=== PATIENT | female | born 1970 | race Caucasian/White ===

== ENCOUNTER 2018-09-26 11:44 | Emergency (ER) | payer MEDICAID, OTHER ==
[~2018-09-26] VITALS: Ht 160 cm; Wt 81.6 kg
[2018-09-26 11:51] VITALS: BP_SYST 148
[2018-09-26] MEDS ORDERED: IBUPROFEN 600 MG TABLET PO ONE (12:15)
[2018-09-26 12:51] VITALS: BP_SYST 138
== END 2018-09-26 12:50 | disposition home or self-care (01) ==
LOC: SED 11:44
DX: S43.401A Unspecified sprain of right shoulder joint, initial encounter (principal); R03.0 Elevated blood-pressure reading, without diagnosis of hypertension; Z88.1 Allergy status to other antibiotic agents; V43.52XA Car driver injured in collision with other type car in traffic accident, initial encounter; Y93.89 Activity, other specified; Y92.410 Unspecified street and highway as the place of occurrence of the external cause; Y99.8 Other external cause status
CPT/HCPCS: 73030; 99283

== ENCOUNTER 2018-11-12 03:44 | Emergency (ER) | payer OTHER, MEDICAID ==
[~2018-11-12] VITALS: Ht 160 cm; Wt 81.6 kg
[2018-11-12 04:00] VITALS: BP_SYST 152
--- NOTE | 2018-11-12 04:00 | NUR ---
Patient to ER bed 7 to gown for evaluation. Side rails up.
--- NOTE | 2018-11-12 04:05 | NUR ---
Pt complains of vaginal bleeding. Pt states her last period ended on October 27 and noticed that she started to bleed again on November 09. Pt denies any pain, N/V, fever, or discharge. No other injuries/complaints per patient or noted.
--- NOTE | 2018-11-12 04:09 | NUR ---
ER Dr. Laurent at bedside examining patient.
[2018-11-12 04:19] LABS: BILIRUBIN,URINE NEGATIVE (NEGATIVE); BLOOD, URINE 3+ (NEGATIVE); CLARITY/URINE CLEAR (CLEAR); COLOR,URINE YELLOW (YELLOW); GLUCOSE,URINE NEGATIVE (NEGATIVE); KETONES,URINE NEGATIVE (NEGATIVE); LEUKOCYTE ESTERASE ,URINE NEGATIVE (NEGATIVE); NITRITE, URINE NEGATIVE (NEGATIVE); PROTEIN URINE NEGATIVE (NEGATIVE); UROBILINOGEN,URINE 0.2 (0.2-1.0)
--- NOTE | 2018-11-12 04:21 | NUR ---
Senior Firewall Engineer at bedside obtaining blood work. Pt tolerated well.
[2018-11-12 04:24] LABS: BACTERIA,URINE FEW /HPF (None Seen); WBC,URINE 0-3 /HPF (0-3)
[2018-11-12 04:47] LABS: BASOPHILS % (AUTO) 0.3 % (0.0-2.0); CALCIUM 8.9 mg/dL (8.4-11.0); CREATININE 0.68 mg/dL (0.55-1.30); EOSINOPHILS % (AUTO) 0.4 % (0.0-4.0); HEMATOCRIT 44.8 % (36-48); HEMOGLOBIN 14.9 g/dL (12.0-16.0); LYMPHOCYTES # (AUTO) 1.8 K/uL (1.0-5.5); LYMPHOCYTES % (AUTO) 19.2 % (20.5-51.5); MEAN CORPUSCULAR HEMOGLOBIN 32 pg (27-31); MEAN CORPUSCULAR HGB CONC 33 % (32-36); MEAN CORPUSCULAR VOLUME 95 fL (79.0-98.0); MONOCYTES # (AUTO) 0.7 K/uL (0.0-1.0); NEUTROPHILS # (AUTO) 6.7 K/uL (1.8-7.7); NEUTROPHILS % (AUTO) 72.1 % (40.0-70.0); PLATELET COUNT (AUTO) 323 K/uL (130-430); RED CELL DISTRIBUTION WIDTH 13.4 % (9.0-15.0); WHITE BLOOD COUNT (AUTO) 9.3 K/uL (4.8-10.8)
[2018-11-12 04:49] LABS: INR 0.9 (0.8-1.2); PROTHROMBIN TIME 9.7 SECS (9.5-12.5)
[2018-11-12 04:52] LABS: ALBUMIN 3.8 g/dL (3.4-4.8); TOTAL BILIRUBIN 0.6 mg/dL (0.0-1.0)
--- NOTE | 2018-11-12 04:58 | NUR ---
ER Dr. Lauernt at bedside explaining results to patient.
[2018-11-12 05:13] VITALS: BP_SYST 144
--- NOTE | 2018-11-12 05:13 | NUR ---
Patient given written and verbal discharge instructions and verbalizes understanding. ER MD discussed with patient the results and treatment provided. Patient in stable condition. ID arm band removed. Rx of [place] given. Patient educated on pain management and to follow up with PMD. Pain Scale 0. Opportunity for questions provided and answered. Medication side effect fact sheet provided.
== END 2018-11-12 05:13 | disposition home or self-care (01) ==
LOC: SED 03:44
DX: N93.9 Abnormal uterine and vaginal bleeding, unspecified (principal); M75.100 Unspecified rotator cuff tear or rupture of unspecified shoulder, not specified as traumatic; M65.819 Other synovitis and tenosynovitis, unspecified shoulder; Z88.1 Allergy status to other antibiotic agents
CPT/HCPCS: 36415; 80053; 81000-TC; 81025; 85025; 85610-TC; 99283

== ENCOUNTER 2019-04-18 20:38 | Emergency (ER) | payer OTHER, MEDICAID ==
[~2019-04-18] VITALS: Ht 160 cm; Wt 81.6 kg
[2019-04-18 21:14] VITALS: BP_SYST 160
[2019-04-18 23:40] LABS: BASOPHILS % (AUTO) 0.4 % (0.0-2.0); EOSINOPHILS # (AUTO) 0.1 K/uL (0.0-0.4); EOSINOPHILS % (AUTO) 0.6 % (0.0-4.0); HEMATOCRIT 43.6 % (36-48); HEMOGLOBIN 14.8 g/dL (12.0-16.0); LYMPHOCYTES # (AUTO) 2.9 K/uL (1.0-5.5); LYMPHOCYTES % (AUTO) 27.5 % (20.5-51.5); MEAN CORPUSCULAR HEMOGLOBIN 33 pg (27-31); MEAN CORPUSCULAR HGB CONC 34 % (32-36); MEAN CORPUSCULAR VOLUME 96 fL (79.0-98.0); MONOCYTES # (AUTO) 0.7 K/uL (0.0-1.0); MONOCYTES % (AUTO) 6.3 % (1.7-9.3); NEUTROPHILS # (AUTO) 6.8 K/uL (1.8-7.7); NEUTROPHILS % (AUTO) 65.2 % (40.0-70.0); PLATELET COUNT (AUTO) 292 K/uL (130-430); RED BLOOD CELL COUNT(AUTO) 4.56 MIL/uL (4.2-6.2); RED CELL DISTRIBUTION WIDTH 13.2 % (9.0-15.0); WHITE BLOOD COUNT (AUTO) 10.4 K/uL (4.8-10.8)
[2019-04-18 23:58] LABS: CALCIUM 8.7 mg/dL (8.4-11.0); CREATININE 0.9 mg/dL (0.55-1.30); POTASSIUM 3.7 mmol/L (3.5-5.1)
[2019-04-19 00:04] LABS: ALBUMIN 3.8 g/dL (3.4-4.8); TOTAL BILIRUBIN 0.4 mg/dL (0.0-1.0)
[2019-04-19 01:41] VITALS: BP_SYST 140
== END 2019-04-19 01:40 | disposition home or self-care (01) ==
LOC: SED 20:38
DX: R05 Cough (principal); Z88.1 Allergy status to other antibiotic agents
CPT/HCPCS: 36415; 71045; 80053; 81002; 81025; 85025; 99284

== ENCOUNTER 2019-07-30 13:09 | Emergency (ER) | payer MEDICAID, OTHER ==
[~2019-07-30] VITALS: Ht 157.5 cm; Wt 839.1 kg
[2019-07-30 13:18] VITALS: BP_SYST 166
--- NOTE | 2019-07-30 13:23 | NUR ---
Patient triaged and placed in waiting room. VSS and patient appears in no acute distress at this time. Accompanied by self, awaiting available bed, and MD notified of need for MSE.
--- NOTE | 2019-07-30 13:25 | NUR ---
Patient to ER bed 05 for evaluation. Side rails up.
--- NOTE | 2019-07-30 13:26 | NUR ---
Flu swab collected and sent to lab
--- NOTE | 2019-07-30 13:38 | NUR ---
ARNULFO Zhang at bedside examining patient.
--- NOTE | 2019-07-30 13:40 | NUR ---
pt arrives form home w/ c/o flu like symptoms. Pt has had cough and congestion for two weeks, was prescribed a z-pack, however, symptoms have returned
--- NOTE | 2019-07-30 14:46 | NUR ---
DPatient given written and verbal discharge instructions and verbalizes understanding. ER MD discussed with patient the results and treatment provided. Patient in stable condition. ID arm band removed. Rx of ALBUTEROL given. Patient educated on pain management and to follow up with PMD. Pain Scale 0. Opportunity for questions provided and answered. Medication side effect fact sheet provided.
== END 2019-07-30 14:46 | disposition home or self-care (01) ==
LOC: SED 13:09
DX: J40 Bronchitis, not specified as acute or chronic (principal); F41.9 Anxiety disorder, unspecified; Z88.1 Allergy status to other antibiotic agents
CPT/HCPCS: 36415; 86710; 99283

== ENCOUNTER 2019-09-24 10:32 | Emergency (ER) | payer OTHER ==
[~2019-09-24] VITALS: Ht 157.5 cm; Wt 81.6 kg
[2019-09-24 11:10] VITALS: BP_SYST 162
[2019-09-24 12:09] VITALS: BP_SYST 158
[2019-09-24] MEDS ORDERED: IBUPROFEN 600 MG TABLET PO ONE (12:15)
[2019-09-24] MEDS ORDERED: AMOXICILLIN/CLAVULANATE POTASSIUM 875 MG TABLET PO ONE (12:15)
== END 2019-09-24 12:09 | disposition home or self-care (01) ==
LOC: SED 10:32
DX: K04.7 Periapical abscess without sinus (principal); J45.909 Unspecified asthma, uncomplicated; F41.9 Anxiety disorder, unspecified; Z88.1 Allergy status to other antibiotic agents
CPT/HCPCS: 99283

== ENCOUNTER 2019-10-16 06:07 | Emergency (ER) | payer MEDICAID, OTHER ==
[~2019-10-16] VITALS: Ht 157.5 cm; Wt 81.6 kg
[2019-10-16 06:10] VITALS: BP_SYST 132
[2019-10-16 07:16] LABS: BASOPHILS % (AUTO) 0.5 % (0.0-2.0); EOSINOPHILS # (AUTO) 0.1 K/uL (0.0-0.4); EOSINOPHILS % (AUTO) 1.3 % (0.0-4.0); HEMOGLOBIN 13.7 g/dL (12.0-16.0); LYMPHOCYTES # (AUTO) 3.7 K/uL (1.0-5.5); LYMPHOCYTES % (AUTO) 38.7 % (20.5-51.5); MEAN CORPUSCULAR HEMOGLOBIN 32 pg (27-31); MEAN CORPUSCULAR HGB CONC 33 % (32-36); MEAN CORPUSCULAR VOLUME 96 fL (79.0-98.0); MONOCYTES # (AUTO) 0.8 K/uL (0.0-1.0); MONOCYTES % (AUTO) 8.7 % (1.7-9.3); NEUTROPHILS # (AUTO) 4.8 K/uL (1.8-7.7); NEUTROPHILS % (AUTO) 50.8 % (40.0-70.0); PLATELET COUNT (AUTO) 242 K/uL (130-430); RED BLOOD CELL COUNT(AUTO) 4.29 MIL/uL (4.2-6.2); RED CELL DISTRIBUTION WIDTH 13.3 % (9.0-15.0); WHITE BLOOD COUNT (AUTO) 9.5 K/uL (4.8-10.8)
[2019-10-16 07:51] LABS: CALCIUM 7.4 mg/dL (8.4-11.0); CREATININE 0.86 mg/dL (0.55-1.30); POTASSIUM 3.7 mmol/L (3.5-5.1)
[2019-10-16 08:06] LABS: ALBUMIN 3.3 g/dL (3.4-4.8); TOTAL BILIRUBIN 0.7 mg/dL (0.0-1.0)
[2019-10-16 08:08] LABS: FREE T4 (FREE THYROXINE) 0.9 ng/dL (0.6-1.6); THYROID STIMULATING HORMONE 3.46 uIu/mL (0.34-4.82)
[2019-10-16] MEDS ORDERED: CALCIUM CHLORIDE 1 GM in NS 100 ML IV ONE (09:15)
[2019-10-16] MEDS ORDERED: NACL 0.9% 1,000 ML IV ONE (09:15)
[2019-10-16 12:23] VITALS: BP_SYST 127
== END 2019-10-16 12:23 | disposition home or self-care (01) ==
LOC: SED 06:07
DX: R00.2 Palpitations (principal); R00.0 Tachycardia, unspecified; E83.51 Hypocalcemia; E11.9 Type 2 diabetes mellitus without complications; F41.9 Anxiety disorder, unspecified; J45.909 Unspecified asthma, uncomplicated; Z88.1 Allergy status to other antibiotic agents
CPT/HCPCS: 36415; 80053; 81025; 82310; 84439; 84443; 84484; 85025; 85379; 96365; 99284; J7030; 93005

== ENCOUNTER 2019-10-18 09:21 | Emergency (ER) | payer MEDICAID ==
[~2019-10-18] VITALS: Ht 160 cm; Wt 81.6 kg
[2019-10-18 09:38] VITALS: BP_SYST 150
[2019-10-18 10:16] VITALS: BP_SYST 146
== END 2019-10-18 10:16 | disposition home or self-care (01) ==
LOC: SED 09:21
DX: I10 Essential (primary) hypertension (principal); F41.9 Anxiety disorder, unspecified; J45.909 Unspecified asthma, uncomplicated
CPT/HCPCS: 99283

== ENCOUNTER 2019-10-22 01:20 | Emergency (ER) | payer MEDICAID ==
[~2019-10-22] VITALS: Ht 160 cm; Wt 81.6 kg
[2019-10-22 01:35] VITALS: BP_SYST 144
--- NOTE | 2019-10-22 01:45 | NUR ---
Patient to ER bed 07 to gown for evaluation. Side rails up.
--- NOTE | 2019-10-22 01:46 | NUR ---
Patient AOx4, ambulatory, presents to ED with complaint of hypertension and frequent urination x1 week. Patient unable to say how high the blood pressure was at home since she does not have anything to check it with. On arrival to ED, BP 144/94. Patient reports recent evaluation for the hypertension and was prescribed Metoprolol 25mg BID. Patient states she believes the medication is not working. No other symptoms or complaints.
--- NOTE | 2019-10-22 01:51 | NUR ---
MD Quintanilla at bedside for medical evaluation.
[2019-10-22 02:12] VITALS: BP_SYST 122
--- NOTE | 2019-10-22 02:12 | NUR ---
Patient given written and verbal discharge instructions and verbalizes understanding. ER MD discussed with patient the results and treatment provided. Patient in stable condition. ID arm band removed. Rx of Atarax given. Patient educated on pain management and to follow up with PMD. Pain Scale 0/10. Opportunity for questions provided and answered. Medication side effect fact sheet provided.
== END 2019-10-22 02:12 | disposition home or self-care (01) ==
LOC: SED 01:20
DX: I10 Essential (primary) hypertension (principal); J45.909 Unspecified asthma, uncomplicated; F41.9 Anxiety disorder, unspecified; E11.9 Type 2 diabetes mellitus without complications; Z88.1 Allergy status to other antibiotic agents
CPT/HCPCS: 81002; 81025; 99283

== ENCOUNTER 2019-10-30 02:56 | Emergency (ER) | payer MEDICAID ==
[~2019-10-30] VITALS: Ht 160 cm; Wt 81.6 kg
[2019-10-30 03:40] VITALS: BP_SYST 156
[2019-10-30 04:04] LABS: BASOPHILS % (AUTO) 0.4 % (0.0-2.0); EOSINOPHILS # (AUTO) 0.1 K/uL (0.0-0.4); EOSINOPHILS % (AUTO) 0.7 % (0.0-4.0); HEMATOCRIT 42.8 % (36-48); HEMOGLOBIN 14.3 g/dL (12.0-16.0); LYMPHOCYTES # (AUTO) 3.2 K/uL (1.0-5.5); MEAN CORPUSCULAR HEMOGLOBIN 32 pg (27-31); MEAN CORPUSCULAR HGB CONC 33 % (32-36); MEAN CORPUSCULAR VOLUME 96 fL (79.0-98.0); MONOCYTES # (AUTO) 0.6 K/uL (0.0-1.0); MONOCYTES % (AUTO) 6.3 % (1.7-9.3); NEUTROPHILS # (AUTO) 6.3 K/uL (1.8-7.7); NEUTROPHILS % (AUTO) 61.6 % (40.0-70.0); PLATELET COUNT (AUTO) 253 K/uL (130-430); RED BLOOD CELL COUNT(AUTO) 4.44 MIL/uL (4.2-6.2); RED CELL DISTRIBUTION WIDTH 13.4 % (9.0-15.0); WHITE BLOOD COUNT (AUTO) 10.2 K/uL (4.8-10.8)
[2019-10-30 04:15] LABS: CALCIUM 8.1 mg/dL (8.4-11.0); CREATININE 0.94 mg/dL (0.55-1.30); POTASSIUM 4.1 mmol/L (3.5-5.1)
[2019-10-30] MEDS ORDERED: METOPROLOL TARTRATE 25 MG TABLET PO ONE (04:15)
[2019-10-30 04:46] LABS: BARBITURATE, URINE NEGATIVE (NEG <=200); BENZODIAZEPINE, URINE NEGATIVE (NEG <=150); CANNABINOID, URINE NEGATIVE (NEG <=50); COCAINE, URINE NEGATIVE (NEG <=150); METHAMPHETAMINES SCREEN,URINE NEGATIVE (NEG <=500); OPIATE, URINE NEGATIVE (NEG <=100); PHENCYCLIDINE SCREEN,URINE NEGATIVE (NEG <=25); UR TRICYCLIC ANTIDEPRESSANTS NEGATIVE (NEG <=300); URINE AMPHETAMINE NEGATIVE (NEG <=500); URINE METHADONE NEGATIVE (NEG <=200); URINE OXYCODONE SCREEN NEGATIVE (NEG <=100); URINE PROPOXYPHENE SCREEN NEGATIVE (NEG <=300)
[2019-10-30 04:58] VITALS: BP_SYST 140
== END 2019-10-30 04:58 | disposition home or self-care (01) ==
LOC: SED 02:56
DX: F41.9 Anxiety disorder, unspecified (principal); R53.1 Weakness; I10 Essential (primary) hypertension; J45.909 Unspecified asthma, uncomplicated; Z88.1 Allergy status to other antibiotic agents
CPT/HCPCS: 36415; 80048; 80307; 81025; 85025; 93005; 99284

== ENCOUNTER 2020-07-12 21:09 | Emergency (ER) | payer OTHER, MEDICAID, SELFPAY ==
[~2020-07-12] VITALS: Ht 157.5 cm; Wt 81.6 kg
[2020-07-12 21:50] VITALS: BP_SYST 148
[2020-07-12 22:41] VITALS: BP_SYST 136
== END 2020-07-13 00:39 | disposition home or self-care (01) ==
LOC: SED 21:09
DX: U07.1 COVID-19 (principal); F12.90 Cannabis use, unspecified, uncomplicated; Z71.6 Tobacco abuse counseling
CPT/HCPCS: 36415; 99283

== ENCOUNTER 2021-01-02 18:59 | Emergency (ER) | payer OTHER, MEDICAID, SELFPAY ==
[~2021-01-02] VITALS: Ht 160 cm; Wt 86.2 kg
[2021-01-02 19:10] VITALS: BP_SYST 154
--- NOTE | 2021-01-02 19:16 | NUR ---
Patient to ER bed 4 to gown for evaluation. Side rails up. Report given to PEPE Orosco.
--- NOTE | 2021-01-02 19:38 | NUR ---
Dr. Joseph bedside for pt eval
--- NOTE | 2021-01-02 19:40 | NUR ---
Pt BIB family to ED C/O darker colored stool x 3 days. No other complaints noted VSS no s/s of acute distress Resting on gurney rails up
--- NOTE | 2021-01-02 19:55 | NUR ---
Lab bedside for blood draw, well tolerated
--- NOTE | 2021-01-02 20:00 | NUR ---
EKG performed at bedside, pt remains in stable condition
[2021-01-02 20:21] LABS: BASOPHILS % (AUTO) 0.5 % (0.0-2.0); EOSINOPHILS % (AUTO) 0.5 % (0.0-4.0); HEMOGLOBIN 14.9 g/dL (12.0-16.0); LYMPHOCYTES # (AUTO) 2.2 K/uL (1.0-5.5); LYMPHOCYTES % (AUTO) 23.7 % (20.5-51.5); MEAN CORPUSCULAR HEMOGLOBIN 32 pg (27-31); MEAN CORPUSCULAR HGB CONC 34 % (32-36); MEAN CORPUSCULAR VOLUME 94 fL (79.0-98.0); MONOCYTES # (AUTO) 0.5 K/uL (0.0-1.0); MONOCYTES % (AUTO) 5.9 % (1.7-9.3); NEUTROPHILS # (AUTO) 6.4 K/uL (1.8-7.7); NEUTROPHILS % (AUTO) 69.4 % (40.0-70.0); PLATELET COUNT (AUTO) 251 K/uL (130-430); WHITE BLOOD COUNT (AUTO) 9.1 K/uL (4.8-10.8)
[2021-01-02 20:28] LABS: CALCIUM 8.7 mg/dL (8.4-11.0); CREATININE 0.8 mg/dL (0.55-1.30); POTASSIUM 4.2 mmol/L (3.5-5.1)
[2021-01-02 20:47] LABS: ALBUMIN 3.7 g/dL (3.4-4.8); TOTAL BILIRUBIN 0.7 mg/dL (0.0-1.0)
[2021-01-02 21:20] VITALS: BP_SYST 154
--- NOTE | 2021-01-02 21:20 | NUR ---
Patient given written and verbal discharge instructions and verbalizes understanding. ER MD discussed with patient the results and treatment provided. Patient in stable condition. ID arm band removed. Patient educated on pain management and to follow up with PMD. Pain Scale 0/10 Opportunity for questions provided and answered.
[2021-01-02 21:23] LABS: PROTHROMBIN TIME 9.9 SECS (9.5-12.5)
== END 2021-01-02 21:20 | disposition home or self-care (01) ==
LOC: SED 18:59
DX: K92.1 Melena (principal); I10 Essential (primary) hypertension; J45.909 Unspecified asthma, uncomplicated; Z88.1 Allergy status to other antibiotic agents; Z79.899 Other long term (current) drug therapy
CPT/HCPCS: 36415; 80053; 85025; 85610-TC; 85730-TC; 86886; 86900; 86901; 93005; 99284

== ENCOUNTER 2021-03-15 22:57 | Emergency (ER) | payer OTHER, MEDICAID, SELFPAY ==
[~2021-03-15] VITALS: Ht 157.5 cm; Wt 83.9 kg
[2021-03-15 23:02] VITALS: BP_SYST 123
--- NOTE | 2021-03-15 23:06 | NUR ---
Patient BIB by family from home. C/O sore throat, headache and congestion x 3 days. Patient reported, patient had sore throat, headahce , congestion x 3 days and diarrhea x1 day. Patient concerns -exposed with COVID-19 .
--- NOTE | 2021-03-15 23:17 | NUR ---
ER Dr. Pearson at triage examining patient.
--- NOTE | 2021-03-15 23:36 | NUR ---
COVID-19 swabs collected and sent to lab.
[2021-03-15 23:45] VITALS: BP_SYST 123
--- NOTE | 2021-03-15 23:45 | NUR ---
Patient given written and verbal discharge instructions and verbalizes understanding. ER MD discussed with patient the results and treatment provided. Patient in stable condition. ID arm band removed. No Rx given. Patient educated on pain management and to follow up with PMD. Pain Scale 0/10. Opportunity for questions provided and answered.
== END 2021-03-15 23:45 | disposition home or self-care (01) ==
LOC: SED 22:57
DX: B34.9 Viral infection, unspecified (principal); I10 Essential (primary) hypertension; J45.909 Unspecified asthma, uncomplicated; Z20.822 Contact with and (suspected) exposure to COVID-19; Z88.1 Allergy status to other antibiotic agents
CPT/HCPCS: 99283; C9803; U0003